=== PATIENT | female | born 1980 | race African-American/Black ===

== ENCOUNTER 2024-06-08 13:30 | Emergency (ER) | payer OTHER ==
[2024-06-08] MEDS ORDERED: Ketorolac Tromethamine 30 MG (1 mL) VIAL ONE (13:59)
[2024-06-08] MEDS ORDERED: Lidocaine 4% Patch ONE (15:24)
[2024-06-08] MEDS ORDERED: Cyclobenzaprine 10 MG TAB ONE (15:24)
== END 2024-06-08 16:37 | disposition home or self-care (01) ==
LOC: ERS 13:30
DX: M51.379 Other intervertebral disc degeneration, lumbosacral region without mention of lumbar back pain or lower extremity pain (principal); F17.210 Nicotine dependence, cigarettes, uncomplicated; W01.0XXA Fall on same level from slipping, tripping and stumbling without subsequent striking against object, initial encounter
CPT/HCPCS: 72100; 72131; 72220; 96372; J1885